=== PATIENT | male | born 1975 | race Caucasian/White ===

== ENCOUNTER → 2017-06-12 | Day surgery (SDC) | payer BC ==
[2017-05-26 11:02] VITALS: Ht 182.9 cm; Wt 100.0 kg
[~2017-06-12] VITALS: Ht 182.9 cm; Wt 100.0 kg
[~2017-06-12] MED LIST: ATROPINE SULFATE 0.1 MG/ML 5ML SYR IV PRN; BUPIVACAINE 0.5 % 5 MG/1 ML MPF 30ML VIAL ONE; CEFAZOLIN 2000MG IV PUSH 15 ML IV SCH; DEXAMETHASONE SOD INJ 4 MG/ML VIAL ONE; EpHEDrine SULFATE INJ 50 MG/ML AMP IV PRN; FENTANYL CITRATE INJ 50 MCG/1 ML 2 ML VIAL IV PRN; FENTANYL CITRATE INJ 50 MCG/1 ML 2 ML VIAL ONE; HYDR-5688 PO; HYDROCODONE/ACETAMIN 5/325MG TAB PO PRN; LACTATED RINGER'S 1000ML 1,000 ML IV SCH; LIDOCAINE HCL 2% 2 ML VIAL (20MG/ML) ONE; MIDAZOLAM HCL 1 MG/ML 2ML VIAL ONE; ONDANSETRON INJ 2 MG/ML 2 ML VIAL IV PRN; ONDANSETRON INJ 2 MG/ML 2 ML VIAL ONE; PRLSR20 PO; PROPOFOL IV EMULSION 10 MG/ML 20 ML VIAL IV ONE; SODIUM CHLORIDE 0.9% 1000ML 1,000 ML IV SCH
[2017-06-12] MEDS: LIDOCAINE HCL 1% 20 ML VIAL ONE (07:36)
--- NOTE | 2017-06-12 07:37 | [facility] Operative Report ---
Operative Report Operative Date Jun 12, 2017. Pre-Operative Diagnosis Umbilical hernia Post-Operative Diagnosis Same as pre-op Procedure(s) Performed Umbilical Hernia Open Repair Surgeon Gym Teacher Surgeon(s) Basli Pineda PA-C Estimated Blood Loss 10ML Findings 2 cm defect Specimens A.Umbilical hernia sac and contents Drains None Anesthesia Type General Complication(s) none Disposition Recovery Room / PACU I attest to the content of the Intraoperative Record and any orders documented therein. Any exceptions are noted below.
--- NOTE | 2017-06-12 07:42 | Discharge Instructions-SurgCtr ---
Discharge Instructions Date of Service Jun 12, 2017. Visit Reason for Visit: Umbilical Hernia Discharge Discharge Diagnosis / Problem: umbilical hernia Discharge Goals Goal(s): Decrease discomfort, Improve function, Improve disease control Medications Stopped Medications Name(s): held ibuprofen for ten days Activity Recommendations Activity Limitations: as noted below Lifting Limitations: no more than 25 pounds (for 4 weeks) Exercise/Sports Limitations: until after follow-up appointment May Resume Sexual Activity: when tolerated Shower/Bathe: tomorrow Driving or Machine Use: resume 1 day after discharge Anesthesia . Post Anesthesia Instructions: If you have had General Anesthesia or IV Sedation: * Do not drive today. * Resume driving when surgeon permits. * Do not make important decisions or sign legal documents today. * Call surgeon for: 1. Temperature elevations greater than 101 degrees F. 2. Uncontrollable pain. 3. Excessive bleeding. 4. Persistent nausea and vomiting. 5. Medication intolerance (nausea, vomiting or rash). * For nausea and vomiting use only clear liquids such as: tea, soda, bouillon until nausea subsides, then gradually increase diet as tolerated. * If you have any concerns or questions, call your surgeon's office. If physician is unavailable and it is an emergency, call 911 or go to the nearest emergency room. . Instructions / Follow-Up Instructions / Follow-Up SPECIAL CARE INSTRUCTIONS: * Cover incisions and change daily for comfort/drainage. Avoid constipation- may use Senokot S and Milk of magnesia twice daily as directed on the package * May use ibuprofen for pain as tolerated. * Expect some swelling and bruising. Call your doctor if: * Temperature above 101 degrees * Pain not relieved by pain medicine ordered * There is increased drainage or redness from any incision * You have any unanswered questions or concerns [phone]. FOLLOW UP VISIT: If not already scheduled, please call the office for a follow-up visit. for next week- some suture removal OFFICE PHONE NUMBER: Dr. Patiño Office Diet Recommendations Home Diet: resume previous diet Procedures Procedures Performed: Umbilical Hernia Open Repair Pending Studies Studies pending at discharge: no Medical Emergencies . Who to Call and When: Medical Emergencies: If at any time you feel your situation is an emergency, please call 911 immediately. . Non-Emergent Contact Non-Emergency issues call your: Primary Care Provider, Surgeon . . "Provider Documentation" section prepared by Jonathon Patiño. .
--- NOTE | 2017-06-12 08:07 | OPERATIVE REPORT ---
DATE OF OPERATION: 06/12/2017 NAME OF OPERATION: Open umbilical hernia repair. PREOPERATIVE DIAGNOSIS: Umbilical hernia. POSTOPERATIVE DIAGNOSIS: Same. STAFF SURGEON: Jonathon Patiño MD. YARN MAN: John Pineda PA-C. ANESTHESIA: General LMA. DESCRIPTION OF THE PROCEDURE: The patient was brought in the operating room and placed on the operating table in supine position. His abdomen was prepped and draped in usual fashion. 0.5% plain Marcaine was used to anesthetize skin and subcutaneous tissue. Incision was made just below the umbilicus on the lower edge carrying dissection down identifying the hernia sac and then mobilizing the fascia around the defect. The hernia sac contained preperitoneal adipose tissue which was partially excised and then reduced. The defect was approximately 2 cm in length. The umbilicus was dissected away from the fascia. The defect was then closed using interrupted #1 Ethibond suture. The subcutaneous tissue was then reapproximated using 2-0 plain catgut suture and then the umbilicus reattached to the fascia using 2-0 chromic suture. The skin was reapproximated using 5-0 Prolene suture. A dressing applied and patient transferred to recovery room in stable condition. Also, my senior underwriting assistant helped with prepping, draping, exposing and repair of the hernia and closure of the wound. I attest to the content of the Intraoperative Record and any orders documented therein. Any exception s are noted below.
[2017-06-12 08:29] VITALS: TEMP 36.3
[2017-06-12 08:53] VITALS: BP 131/81; PULSE 78; O2SAT 98
--- NOTE | 2017-06-12 09:06 | Anesthesiology Progress Note ---
Anesthesia Post Op Note Date & Time Jun 12, 2017 at 09:05 Vital Signs Pain Intensity: 4.0 Vital Signs Past 12 Hours Date Time Temp Pulse Resp B/P (MAP) Pulse Ox O2 Delivery O2 Flow Rate FiO2 06/12/17 08:53 78 16 131/81 (98) 98 Room Air 06/12/17 08:29 36.3 72 16 156/99 (118) 98 Room Air 06/12/17 08:23 36.6 73 16 137/92 99 Room Air 06/12/17 08:17 82 21 06/12/17 08:17 83 21 94 06/12/17 08:15 134/95 06/12/17 08:12 83 21 94 06/12/17 08:12 82 21 06/12/17 08:10 134/90 06/12/17 08:07 75 14 06/12/17 08:07 75 14 98 06/12/17 08:05 135/94 06/12/17 08:02 76 7 98 06/12/17 08:02 77 7 06/12/17 08:00 140/98 06/12/17 07:57 78 16 06/12/17 07:57 78 16 97 06/12/17 07:57 36.5 14 134/97 98 Mask 06/12/17 07:55 142/96 06/12/17 07:52 79 13 06/12/17 07:52 77 13 95 06/12/17 07:51 73 8 95 06/12/17 07:51 73 8 06/12/17 07:51 73 8 06/12/17 07:51 73 8 95 06/12/17 07:50 142/98 06/12/17 07:50 142/98 06/12/17 07:47 134/97 06/12/17 07:47 134/97 06/12/17 07:46 76 133/101 94 06/12/17 07:46 76 06/12/17 07:46 76 06/12/17 07:46 76 133/101 94 06/12/17 06:23 36.5 95 18 135/96 (109) 98 Room Air Notes Mental Status: alert / awake / arousable, participated in evaluation Pt Amnestic to Procedure: Yes Nausea / Vomiting: adequately controlled Pain: adequately controlled Airway Patency, RR, SpO2: stable & adequate BP & HR: stable & adequate Hydration State: stable & adequate Anesthetic Complications: no major complications apparent
== END | disposition home or self-care (01) ==
LOC: X.SURG 06:23
PROVIDERS: ATTEND Surgery
DX: K42.9 Umbilical hernia without obstruction or gangrene (principal); K21.9 Gastro-esophageal reflux disease without esophagitis; K44.9 Diaphragmatic hernia without obstruction or gangrene; Z88.2 Allergy status to sulfonamides; Z83.71 Family history of colonic polyps; Z83.49 Family history of other endocrine, nutritional and metabolic diseases; Z82.49 Family history of ischemic heart disease and other diseases of the circulatory system; Z83.3 Family history of diabetes mellitus; Z80.42 Family history of malignant neoplasm of prostate